=== PATIENT | male | born 1960 | race African-American/Black ===

== ENCOUNTER 2017-09-27 22:37 | Emergency (ER) | payer OTHER | END 2017-09-28 00:30 | disposition home or self-care (01) | LOC: ER 09-28 00:30 | DX: S46.911A Strain of unspecified muscle, fascia and tendon at shoulder and upper arm level, right arm, initial encounter (principal); Z88.0 Allergy status to penicillin; X58.XXXA Exposure to other specified factors, initial encounter; Y93.89 Activity, other specified; Y92.89 Other specified places as the place of occurrence of the external cause; Y99.8 Other external cause status | CPT/HCPCS: 73030; 73080; 99284 ==

== ENCOUNTER → 2018-01-01 | Outpatient (CLI) | payer OTHER ==
[2017-09-27 22:56] VITALS: BP 144/82
[~2018-01-01] MED LIST: CONTRAST GIVEN. MC PRN; IOHEXOL 240 MG/ML 50ML VIAL. PO ONE; IOHEXOL 300 MG/ML 100ML VIAL. IV ONE; IOHEXOL 300 MG/ML 100ML VIAL. ONE
--- NOTE | 2018-01-01 14:42 | RAD ---
CT pelvis with contrast dated 01/01/2018. No comparison available. CLINICAL INDICATION: Right inguinal pain and groin tenderness. Palpable mass. TECHNIQUE: Contiguous axial imaging the pelvis performed after the intravenous administration of 75 cc Omnipaque 300. One or more of the following individualized dose reduction techniques were utilized for this examination: 1. Automated exposure control 2. Adjustment of the mA and/or kV according to patient size 3. Use of iterative reconstruction technique. FINDINGS: There is a long segment of wall thickening involving the terminal ileum nearly to the level of the ileocecal valve. This is best seen on coronal image 33 and measures up to 10.5 cm in length. There is also some focal wall thickening of the adjacent sigmoid colon with possible small fistulous connection. There is also wall thickening of the appendiceal base with ill-definition of the appendiceal tip. The appendix appears to be tethered into the area of thickened mesentery adjacent to the distal ileum and sigmoid colon. There are enlarged ileocolic lymph nodes that measure up to 1.2 cm short axis. No circumscribed fluid collection to suggest abscess. No free air. Visualized GI tract is otherwise unremarkable. There is no free fluid or pelvic sidewall adenopathy. Distal aorta normal in caliber. Ureter bladder is nondistended. Prostate gland mildly enlarged. No free fluid. There are mildly enlarged bilateral inguinal lymph nodes, right greater than left. Bone windows show no acute findings. Mild lower lumbar spondylosis. IMPRESSION: 1. Thickened segment of distal ileum, nonspecific but suspicious for Crohn's disease. 2. There is also a short segment of wall thickening involving the sigmoid colon which may communicate to the thickened terminal ileum via a small fistulous tract. 3. The appendix is also abnormally thickened and appears to be tethered into the area of inflammation in the right lower quadrant,, likely also related to inflammatory bowel disease. Concurrent acute appendicitis cannot be excluded. Recommend clinical correlation. 4. Mild ileocolic and inguinal lymphadenopathy, nonspecific. Electronically signed by: Demetri Armstrong MD (01/01/2018 2:39 PM) [id number]
== END | disposition home or self-care (01) ==
LOC: CT 12:36
PROVIDERS: ATTEND Family Medicine
DX: R59.1 Generalized enlarged lymph nodes (principal); M47.896 Other spondylosis, lumbar region; Z88.0 Allergy status to penicillin
CPT/HCPCS: 74170; Q9966; Q9967

== ENCOUNTER 2019-04-05 17:46 | Emergency (ER) | payer OTHER ==
[~2019-04-05] VITALS: Ht 175.3 cm; Wt 83.9 kg
[2019-04-05 18:07] VITALS: BP 134/86
[2019-04-05] MEDS ORDERED: CEPH-264 PO (18:37)
[2019-04-05] MEDS ORDERED: MUPI22OI2 TP (18:37)
--- NOTE | 2019-04-05 18:37 | PHYS DOC ---
Past Medical History Past Medical History: No Pertinent History, Other Additional Past Medical Histor: CROHNS (AKIRA VICTOR APRN) Additional Past Surgical Histo: polyup removal, left marcial tumor removal, left knee scope x2 (AKIRA VICTOR APRN) Alcohol Use: Rarely Drug Use: None (AKIRA VICTOR APRN) Attending Signature I have participated in the care of this patient and I have reviewed and agree with all pertinent clinical information above including history, exam, and recommendations. (AHSAN MONTENEGRO MD) Adult General Chief Complaint Chief Complaint: SKIN PROBLEM HPI HPI Patient is a 58 year old AA male who presents to the ER with complaints of a red tender area to his chin for the last week. Pt states that it has drained bloody pus for the last 2-3 days. He denies any fever, cough, shortness of breath, sore throat, or ear pain. Pt states he takes naproxen twice daily for chronic pain. He currently rates the pain a 4/10 on the pain scale. All other ROS is neg unless otherwise noted in HPI. (AKIRA VICTOR APRN) Review of Systems Review of Systems See Above (AKIRA VICTOR APRN) Allergies Allergies Allergies Coded Allergies Type Severity Reaction Last Updated Verified Penicillins Allergy Intermediate 09/27/17 Yes (AHSAN MONTENEGRO MD) Physical Exam Physical Exam See Above Constitutional: Well developed, well nourished, no acute distress, non-toxic appearance. [] HENT: Normocephalic, atraumatic, bilateral external ears normal, oropharynx moist, no oral exudates, nose normal. [] Eyes: PERRLA, EOMI, conjunctiva normal, no discharge. [] Neck: Normal range of motion, no tenderness, supple, no stridor. [] Cardiovascular:Heart rate regular rhythm Lungs & Thorax: Bilateral breath sounds clear to auscultation [] Skin: Warm, dry; erythemic warm area to right lateral chin consistent with abscess/ cellulitis, no fluctuant area or pustule present. Extremities: No cyanosis, ROM intact Neurologic: Alert and oriented X 3, no focal deficits noted. [] Psychologic: Affect normal, judgement normal, mood normal. [] (AKIRA VICTOR APRN) Current Patient Data Vital Signs Vital Signs Date Time Temp Pulse Resp B/P (MAP) Pulse Ox O2 Delivery O2 Flow Rate FiO2 04/05/19 18:07 98.1 100 16 134/86 (102) 96 Room Air 98.1 (AHSAN MONTENEGRO MD) EKG EKG [] (AKIRA VICTOR APRN) Radiology/Procedures Radiology/Procedures [] (AKIRA VICTOR APRN) Course & Med Decision Making Course & Med Decision Making Pertinent Labs and Imaging studies reviewed. (See chart for details) [] (AKIRA VICTOR APRN) Dragon Disclaimer Dragon Disclaimer This electronic medical record was generated, in whole or in part, using a voice recognition dictation system. (AKIRA VICTOR APRN) Departure Departure Impression: Primary Impression: Abscess or cellulitis of chin Disposition: 01 HOME, SELF-CARE Condition: STABLE Referrals: SANTO CENTENO (PCP) Patient Instructions: Cellulitis, [id number], Facial Infection Additional Instructions: Fill the prescription(s) and use as directed. Apply warm, moist packs to the area 4x a day to help decrease discomfort. Make sure to change your razor blade with every shave until area clears up completely. Follow up with your primary care doctor or return to the ER in 48 hours to have site rechecked. Return to the ER sooner if your symptoms worsen. Scripts Mupirocin (MUPIROCIN OINTMENT) 22 Gm Oint...g. 1 WICHO TP TID for WOUND CARE for 7 Days, #1 TUBE 0 Refills Prov: AKIRA VICTOR APRN 04/05/19 Cephalexin (KEFLEX) 500 Mg Capsule 500 MG PO QID for 7 Days, #28 CAP 0 Refills Prov: AKIRA VICTOR APRN 04/05/19 AKIRA VICTOR APRN Apr 05, 2019 18:37 AHSAN MONTENEGRO MD Apr 05, 2019 19:06
== END 2019-04-05 19:11 | disposition home or self-care (01) ==
LOC: ER 17:46
DX: L03.211 Cellulitis of face (principal); L02.01 Cutaneous abscess of face; Z88.0 Allergy status to penicillin
CPT/HCPCS: 99283

== ENCOUNTER → 2019-07-23 | Outpatient (CLI) | payer OTHER ==
[~2019-07-23] MED LIST changes: +CEPH-264 PO; -CONTRAST GIVEN. MC PRN; +IOHEXOL 180 MG/ML 10 ML VIAL. ONE; -IOHEXOL 240 MG/ML 50ML VIAL. PO ONE; -IOHEXOL 300 MG/ML 100ML VIAL. IV ONE; -IOHEXOL 300 MG/ML 100ML VIAL. ONE; +MESA4ENE3 RC; +MULT-697 PO; +MUPI22OI2 TP; +OMEP20CA16 PO; +methylPREDNISolone ACETATE 40 MG/ML VIAL. ONE; +methylPREDNISolone ACETATE 80 MG/ML VIAL. ONE; +prosta genix
--- NOTE | 2019-07-23 16:52 | PAIN ---
DATE OF SERVICE: 07/23/2019 INITIAL CONSULTATION FOR PAIN CLINIC CHIEF COMPLAINT: Neck and right upper extremity pain. HISTORY OF PRESENT ILLNESS: This is a 58-year-old male who presents with history of pain in the base of the neck, right upper extremity, and right shoulder since about 01/29/2019. The patient reports it occurred suddenly. 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 The patient has had some significant pain at the base of neck and shoulder. Since then, the patient did get the shoulder reduced fairly quickly and has seen his orthopedic surgeon regarding it and he does have a rotator cuff tear on the right side, but his main complaint is pain in the base of the neck radiating to the right shoulder in the upper part of the shoulder and neck radiating to the right arm posteriorly into the triceps muscle and also anteriorly in the biceps and into the forearm, both medially and radiating into the thumb and the first and second fingers. The patient reports he has been dropping things with the right hand. The patient describes the pain as constant, shooting, sharp, tingling in the base of neck and shoulder, intermittent in intensity, but present throughout the day. The patient reports it awakens him from sleep at least 2-3 times a night, does not affect his bowel or bladder control. It is difficult with walking activities and using his right upper extremity with repetitive motions, raising his hand over the head on the right side. The patient did have an MRI scan of the cervical spine showing diffuse cervical spondylosis and more significant disease at C3-C4, C5-C6, C6-C7 and C3-C4 showing generalized disk bulging eccentric towards the left with mild left posterior joint osteophyte complexes. The patient's C4C5 with generalized disk bulge and mild posterior lateral facet change and effacement of the CSF anterior to the spinal cord. C5-C6 shows generalized disk bulging and posterior lateral uncovertebral joint osteophyte formation, right-sided neural foraminal narrowing, mild extent. C6C7 shows a broad-based left paracentral and lateral disk protrusion deformity, anterior thecal sac abutting the anterior aspect of the spinal cord. The patient rates his disability from 0-10, 10 being the worst, is a 6 with family home responsibilities, 10 with recreation, 6 with social activity, sexual behavior, self-care and life support activities and 7 with occupational activity. The patient has tried physical therapy especially with his shoulder and his neck, which was helpful at that time, but now successful in decreasing the pain long-term. He is also taking Aleve twice daily. The patient reports no loss of motor function, but significant fatigability in the right upper extremity compared to the left with repetitive motions and weightbearing. The patient reports again dropping items on the right side as well over the last few weeks. PAST MEDICAL HISTORY: Significant for: 1. Gastroesophageal reflux. 2. History of cigarette smoking, quit 3 years ago. 3. History of Crohn's disease. 4. Arthritis. 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 2. Knee scope on the left x 2. 3. Tonsillectomy in the past. CURRENT MEDICATIONS: Include Aleve. ALLERGIES: The patient is allergic to PENICILLIN. FAMILY HISTORY: Significant for different types of cancers. SOCIAL HISTORY: The patient does not drink alcohol, does not smoke. Denies any illegal, illicit or recreational drugs. 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 REVIEW OF SYSTEMS: The patient's review of systems is positive for those items mentioned in the history of present illness. All systems reviewed and otherwise negative. It is complete, full and well documented on the patient's chart. PHYSICAL EXAMINATION: VITAL SIGNS: The patient's blood pressure is 151/98, pulse is 71, respirations 16, temperature 97.7 degrees Fahrenheit, height is 5 feet 8-1/2 inches, weight is 186 pounds. GENERAL: The patient is awake, alert, oriented, appropriate, very pleasant demeanor. HEENT: Head shows normocephalic, atraumatic. Extraocular movements are intact and symmetrical. Oral cavity: Mucous membranes moist and pink. Dentition is intact. NECK: Shows anterior throat supple without palpable lymphadenopathy noted. Swallow reflex symmetrical. CHEST: Shows normal on inspection. Breath sounds are clear to auscultation bilaterally. HEART: Shows S1, S2 clear. No murmurs auscultated. ABDOMEN: Soft, nontender, nondistended. No palpable organomegaly is noted. No rebound or guarding demonstrated. BACK: Shows spine grossly in the midline. Normal appearing thoracic kyphosis, cervical lordotic curvature and lumbar lordotic curvature. Cervical paraspinous muscle shows symmetrical on inspection, with palpation shows some moderate tenderness diffusely bilaterally, but only diffusely without significant radiation. The patient has good rotational motion of the cervical spine, both laterally as well as extension and flexion greater than 45 degrees closer to 90 degrees on right and left as well as extension and forward flexion, full chin to chest and extension without difficulty or pain reported. EXTREMITIES: The patient's upper extremities show deep tendon reflexes 2+ in the biceps and triceps tendons. Motor exam is strong with it solutions architect strength rated at 5/5. Bicep and tricep flexion is 4/5 on the right and 5/5 on the left. Shoulder shrug is strong and intact with some moderate tenderness with performing the shoulder shrug on the right side only, but without loss of strength on resistance. This is true with abduction of the shoulders at 90 degrees with some moderate tenderness with resistance on the right side, but no loss of strength on resistance and pain reported at the base of neck and right shoulder on the right only. Peripheral pulses are 2+ radial. No peripheral edema noted. The upper extremities are warm and dry to touch, equal in color and appearance. SKIN: Warm and dry. Good turgor. No edema. No sores, rashes or bruising throughout. IMPRESSION: 1. This is a 58-year-old male with history of injury in January 2019 while on the job restraining a patient as the patient is a internet security specialist with radicular pain and rotator cuff tear in the right upper extremity. 2. MRI scan of the cervical spine as noted. 3. Arthritis. 4. History of Crohn's disease. PLAN: Options were discussed including continued physical therapies, interventional techniques and medication management. The patient would like to pursue interventional techniques. We discussed the cervical epidural steroid injection using description as well as anatomical models to describe the procedure. Risks were then discussed including, but not limited to bleeding, infection, possibility of epidural hematoma, subsequent neurological compromise, dural puncture, headaches, spinal cord and/or nerve damage, side effects of steroid medication and poor results regarding pain control. The patient understands and wished to proceed. The patient will return to clinic in approximately 2 weeks for followup. He was counseled as to return appointment, activity level and side effects to be aware of. DIAGNOSES: Cervical radiculopathy with cervical degenerative disk disease and cervical herniated disk. PROCEDURE: Cervical epidural steroid injection, translaminar approach C6-C7 level using [place] fluoroscopic guidance under sterile prep and drape using local anesthetic. MEDICATIONS INJECTED: A total of 120 mg Depo-Medrol plus 5 mL of preservative-free normal saline and 2 mL of contrast. CONDITION AT DISCHARGE: Stable. The patient tolerated the procedure well and had no complications. SARAY QUEZADA MD DR: TOYIN/chloe JOB#: [id number] / [id number] Roxy Ramsey MD
== END ==
LOC: PNCL 13:29
PROVIDERS: ATTEND Anesthesiology
DX: M50.123 Cervical disc disorder at C6-C7 level with radiculopathy (principal); K21.9 Gastro-esophageal reflux disease without esophagitis; K50.90 Crohn's disease, unspecified, without complications; Z87.891 Personal history of nicotine dependence; Z87.39 Personal history of other diseases of the musculoskeletal system and connective tissue; Z88.0 Allergy status to penicillin; Z98.890 Other specified postprocedural states
CPT/HCPCS: 62321; J1030; J1040; Q9965

== ENCOUNTER → 2019-08-06 | Outpatient (CLI) | payer OTHER ==
[~2019-08-06] MED LIST changes: -IOHEXOL 180 MG/ML 10 ML VIAL. ONE; -methylPREDNISolone ACETATE 40 MG/ML VIAL. ONE; -methylPREDNISolone ACETATE 80 MG/ML VIAL. ONE
--- NOTE | 2019-08-06 14:09 | PAIN ---
DATE OF SERVICE: 08/06/2019 PROGRESS NOTE FOR PAIN CLINIC DIAGNOSES: Cervical radiculopathy with cervical degenerative disk disease and cervical herniated disk. HISTORY OF PRESENT ILLNESS: The patient is a 58-year-old male who returns for followup status post cervical epidural steroid injection x 1. The patient reports about 75-80% improvement in the base of neck and right upper extremity. The patient reports he has increased his activity with greater ease and comfort, doing work activities, household activities with much greater ease, is only waking him from sleep occasionally. The patient reports doing very well, was very pleased with his progress. He has increased his activity with ease, using upper and lower extremity, weightbearing, repetitive motions, working and is quite happy with his progress thus far. The patient reports the pain is a 6 on a scale of 10 at its worst over the past week, 4 on average and 4 at its least and is 4 today. The patient reports that he occasionally sharp and shooting in the neck and shoulder on the right side as well as the upper back and stabbing sensation in the right shoulder blade, but again very infrequent. The patient reports it does radiating into the right upper extremity and shoulder, but only very infrequently at this time. The patient reports no new motor or sensory deficits, no new bowel or bladder incontinence or other complaints. PHYSICAL EXAMINATION: VITAL SIGNS: Blood pressure is 130/87, pulse 98, respirations are 18, temperature 98.7 degrees Fahrenheit, weight is 181 pounds. GENERAL: The patient is awake, alert, oriented, appropriate, very pleasant demeanor. HEENT: Shows normocephalic, atraumatic. Extraocular movements are intact and symmetrical. Oral cavity: Mucous membranes are moist and pink. Dentition is intact. NECK: Shows anterior throat supple without palpable lymphadenopathy noted. Swallow reflex symmetrical. CHEST: Shows normal on inspection. Breath sounds are clear bilaterally. HEART: Shows S1, S2 clear. ABDOMEN: Soft, nontender, nondistended. No palpable organomegaly is noted. No rebound or guarding demonstrated. BACK: Shows spine grossly in the midline. Cervical paraspinous muscle shows symmetrical on inspection, with palpation shows some mild tenderness only inferiorly in the inferior cervical paraspinous musculature as well as superior medial trapezius, more on the right than the left, but without specific trigger points. The patient just shows full rotational motion of the cervical spine without significant increase in pain, both right and left lateral greater than 45 degrees as well as full extension, full forward flexion without significant difficulty. EXTREMITIES: The patient's upper extremities show deep tendon reflexes at 2+ in the biceps and triceps tendons. Motor exam is approximately 4 on scale of 5 with right clay miner strength and 5/5 on the left. Bicep and tricep flexion are 5/5 bilaterally. Peripheral pulses are 2+ radial. No peripheral edema is noted bilaterally. Options were discussed with the patient. The patient's old chart was reviewed as his current medication regimen updated. Current review of systems updated today as well. We will hold on his further injections at this time as the patient is doing quite a bit better and would like to wait on any further procedural interventions. The patient will increase activity as tolerated and was encouraged to do stretching and strengthening exercises as well as some heat applications to the right shoulder and neck as he has been doing. The patient will follow up at this time on as needed basis. SARAY QUEZADA MD DR: TOYIN/chloe JOB#: [id number] / [id number]
== END ==
LOC: PNCL 12:58
PROVIDERS: ATTEND Anesthesiology
DX: M50.10 Cervical disc disorder with radiculopathy, unspecified cervical region (principal)
CPT/HCPCS: G0463

== ENCOUNTER → 2019-10-16 | Outpatient (CLI) | payer OTHER ==
[~2019-10-16] MED LIST changes: +IOHEXOL 180 MG/ML 10 ML VIAL. ONE; +SITA1TAB7 PO; +methylPREDNISolone ACETATE 40 MG/ML VIAL. ONE; +methylPREDNISolone ACETATE 80 MG/ML VIAL. ONE
--- NOTE | 2019-10-16 13:56 | PAIN ---
DATE OF SERVICE: 10/16/2019 PROGRESS NOTE FOR PAIN CLINIC DIAGNOSES: Cervical radiculopathy with cervical degenerative disk disease and cervical herniated disk. HISTORY OF PRESENT ILLNESS: The patient is a 58-year-old male who returns for followup status post cervical epidural steroid injection x 1 on 07/23/2019. The patient reports he did very well for a significant period of time following the injection, but the pain is returning now in the base of the neck and the right upper extremity. The patient reports no new motor or sensory deficits, but significant pain in the neck and the right upper extremity, mostly in the posterior deltoid, posterior and anterior biceps and triceps and into the forearm with numbness and tingling in the thumb and first finger, especially on the right side. The patient reports it is getting worse with activity, weight lifting, weightbearing, repetitive motions, lifting his arm over his head and is impairing some of his work activities. This is causing it to be more exacerbated as well. The patient reports it awakens him from sleep about every 6 hours. The patient reports initially he was doing much better with doing work activities, household activities, traveling with greater ease and comfort, now it is returning. The patient rates it as a 7 on a scale of 10 at its worst over the past week, 4 on average and 4 at its least and is a 4 today. The patient reports it is sharp, shooting, tingling, burning, radiating, on and off in intensity. No new motor or sensory deficits or other complaints. PHYSICAL EXAMINATION: VITAL SIGNS: The patient's blood pressure is 135/88, pulse 69, respirations are 18, temperature 98.5 degrees Fahrenheit, weight is 185 pounds. GENERAL: The patient is awake, alert, oriented, appropriate, very pleasant demeanor. HEENT: Shows normocephalic, atraumatic. Extraocular movements are intact and symmetrical. Oral cavity: Mucous membranes moist and pink. Dentition is intact. NECK: Shows anterior throat supple without palpable lymphadenopathy noted. Swallow reflex symmetrical. CHEST: Shows normal on inspection. Breath sounds are clear bilaterally. HEART: Shows S1, S2 clear. No murmurs auscultated. ABDOMEN: Soft, nontender, nondistended. No palpable organomegaly is noted. No rebound or guarding demonstrated. BACK: Shows spine grossly in the midline. Normal appearing thoracic kyphosis and lumbar lordotic curvature as well as cervical lordotic curvature. Cervical paraspinous muscle shows symmetrical on inspection, on palpation shows some moderate tenderness diffusely bilaterally, but only diffusely without significant radiation. The patient has good rotational motion of cervical spine, both laterally as well as extension and flexion without significant increase in pain. EXTREMITIES: The patient's upper extremities show deep tendon reflexes at 2+ biceps and triceps tendons. Motor exam is approximately 4 on a scale of 5 with right dermatology physician strength and 5/5 on the left. Peripheral pulses are 2+ radial. No peripheral edema is noted bilaterally. Options were discussed with the patient. The patient's old chart was reviewed as his current medication regimen updated. Current review of systems updated today as well and we will proceed with a second in a series of cervical epidural steroid injection today with fluoroscopic guidance. Risks were again discussed including, but not limited to bleeding, infection, possibility of epidural hematoma, subsequent neurological compromise, dural puncture, headaches, spinal cord and/or nerve damage, side effects of steroid medication and poor results regarding pain control. The patient understands and wished to proceed. The patient will return to clinic in approximately 2 weeks for followup, was counseled on return appointment, activity level and side effects to be aware of. DIAGNOSES: Cervical radiculopathy with cervical degenerative disk disease. PROCEDURE: Cervical epidural steroid injection, translaminar approach C6-C7 level using C-arm fluoroscopic guidance under sterile prep and drape using local anesthetic. MEDICATION INJECTED: A total of 120 mg Depo-Medrol plus 5 mL of preservative-free normal saline and 2 mL of contrast. CONDITION AT DISCHARGE: Stable. The patient tolerated the procedure well, had no complications. SARAY QUEZADA MD DR: TOYIN/chloe JOB#: [id number] / [id number]
== END ==
LOC: PNCL 11:42
PROVIDERS: ATTEND Anesthesiology
DX: M50.123 Cervical disc disorder at C6-C7 level with radiculopathy (principal)
CPT/HCPCS: 62321; J1030; J1040; Q9965

== ENCOUNTER 2020-03-19 21:52 | Emergency (ER) | payer OTHER ==
[~2020-03-19] VITALS: Ht 180.3 cm; Wt 81.8 kg
[~2020-03-19 21:52] MED LIST changes: -IOHEXOL 180 MG/ML 10 ML VIAL. ONE; -methylPREDNISolone ACETATE 40 MG/ML VIAL. ONE; -methylPREDNISolone ACETATE 80 MG/ML VIAL. ONE
[2020-03-19 21:55] VITALS: BP 172/98
--- NOTE | 2020-03-19 22:59 | RAD ---
AP pelvis radiograph to include AP and lateral radiograph the right hip 03/19/2020 CLINICAL HISTORY: Right hip pain. An AP digital radiograph of the pelvis to include both hips was obtained. AP and lateral radiographs of the right hip were obtained. No pelvic bone fracture is seen. Both hips are intact. No fracture or dislocation of the right hip is seen. Mild to moderate degenerative changes are seen involving both hips. Calcifications are seen within the pelvis consistent with phleboliths. IMPRESSION: Mild to moderate degenerative changes are seen involving both hips. No acute osseous abnormality is seen. Electronically signed by: Lacho Scott MD (03/19/2020 10:56 PM) [id number]
--- NOTE | 2020-03-19 23:02 | RAD ---
Three-view right shoulder radiographs 05/19/2019 CLINICAL HISTORY: Fall with injury to the right shoulder. AP internal and external rotation and transscapular digital radiographs of the right shoulder were obtained. No fracture or dislocation of the right shoulder is seen. Mild degenerative changes are seen involving the right AC joint and right glenohumeral joint. IMPRESSION: No fracture or dislocation of the right shoulder is seen. Electronically signed by: Lacho Scott MD (03/19/2020 10:59 PM) [id number]
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
[2020-03-19 23:25] LABS: AMPHETAMINE/METHAMPHETAMINE NEG (NEG); BARBITURATES NEG (NEG); BENZODIAZEPINES NEG (NEG); CANNABINOIDS NEG (NEG); COCAINE NEG (NEG); METHADONE NEG (NEG); OPIATES NEG (NEG); PHENCYCLIDINE NEG (NEG)
== END 2020-03-19 23:18 | disposition home or self-care (01) ==
LOC: ER 21:52
DX: S49.91XA Unspecified injury of right shoulder and upper arm, initial encounter (principal); S79.911A Unspecified injury of right hip, initial encounter; Z87.891 Personal history of nicotine dependence; Z88.0 Allergy status to penicillin; W18.39XA Other fall on same level, initial encounter; Y93.89 Activity, other specified; Y92.89 Other specified places as the place of occurrence of the external cause; Y99.8 Other external cause status
CPT/HCPCS: 73030; 73502; 80307; 99284

== ENCOUNTER → 2020-04-13 | Outpatient (CLI) | payer OTHER ==
[2020-03-19 21:55] VITALS: BP 172/98
[~2020-04-13] MED LIST changes: +CYCL10TA2 PO; +IOHEXOL 180 MG/ML 10 ML VIAL. ONE; +NAPR220C4 PO; +methylPREDNISolone ACETATE 40 MG/ML VIAL. ONE; +methylPREDNISolone ACETATE 80 MG/ML VIAL. ONE
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
== END | disposition home or self-care (01) ==
LOC: PNCL 14:11
PROVIDERS: ATTEND Anesthesiology
DX: M50.10 Cervical disc disorder with radiculopathy, unspecified cervical region (principal); M19.011 Primary osteoarthritis, right shoulder; Z79.899 Other long term (current) drug therapy; Z98.890 Other specified postprocedural states; Z88.0 Allergy status to penicillin; Z87.891 Personal history of nicotine dependence; Z72.89 Other problems related to lifestyle
CPT/HCPCS: 62321; J1030; J1040; Q9965

== ENCOUNTER → 2020-04-27 | Outpatient (CLI) | payer OTHER ==
[~2020-04-27] MED LIST changes: +BUPIVACAINE MPF 0.25% 10 ML VIAL. ONE
--- NOTE | 2020-04-27 15:46 | PDOC ---
Progress Note - Pain Clinic Date of Service: DOS: DATE: 04/27/20 TIME: 15:40 Diagnosis: Dx: Cervical radiculopathy with cervical degenerative disease and cervical herniated disc Right shoulder joint pain with osteoarthritis and previous injury History or Present Illness: HPI: 59-year-old male returns follow-up status post cervical epidural steroid injection x1 April 13, 2020. Patient reports about 50% improvement after the last injection. But his main complaint is right shoulder joint pain worse with weightbearing lifting abduction of the right shoulder repetitive motions reaching over his arm with significant pain less shocking pain after the injection but still significant pain in the shoulder itself. Patient rates is a 7 on scale 10 is worst the past week for an average to its least and is a 4 today. Patient describes the pain as aching and sharp, tingling in the shoulder and arm as well is radiating into the upper extremity mostly on the lateral side of the shoulder. Patient reports no loss of motor function or other complaints. Physical Exam: VS: Blood pressure is 131/96 pulse 88 respirations 16 temperature 98.5 F weight is 180 pounds PE: PHYSICAL EXAMINATION: GENERAL: The patient is awake, alert, oriented, appropriate, very pleasant demeanor HEENT: Shows normocephalic, atraumatic. Extraocular movements are intact and symmetrical. Oral cavity: Mucous membranes moist and pink. NECK: Shows anterior throat supple without palpable lymphadenopathy noted. Swal low reflex symmetrical. CHEST: Shows normal on inspection. Breath sounds are clear bilaterally, no rales or rhonchi. HEART: Shows S1, S2 clear. No murmurs auscultated. ABDOMEN: Soft, nontender, nondistended, obese. No palpable organomegaly is noted. No rebound or guarding demonstrated. BACK: Shows spine grossly in the midline. Normal-appearing cervical lordotic curvature. Cervical paraspinous posterior shows symmetrical with inspection on palpation some moderate tenderness diffusely bilaterally but without radiation without trigger points slightly more tender on the right than the left. Patient's spine shows good rotation motion both laterally greater than 45 degrees right and left as well as full extension full forward flexion of the cervical spine. There is slightly increased thoracic kyphosis, some minor flattening of the lumbar lordotic curvature. EXTREMITIES: Upper extremities show deep tendon reflexes 2+ in the steps and triceps tendons. Motor exam is 4 on a scale of 5 with right patrol captain, biceps and triceps flexion and 5/5 on the left. Peripheral pulses are 2+ radial. No peripheral edema is noted bilaterally. SKIN: Shows warm and dry, good turgor. No edema. No sores, rashes or bruising throughout. Procedure: Procedure: Discussed with the patient. Patient will chart reviews his current medication regimen updated current review of systems updated today as well. We will proceed with a right intra-articular shoulder joint injection with fluoroscopic guidance in the glenohumeral joint. Risks are discussed including but not limited to bleeding infection possibility of intravascular injection sequelae spread local anesthetic numbness side effects of steroid medication exposure fluoroscopy and portals regarding pain control. Patient understands wished to proceed. Patient will return to clinic in approximately 2 weeks for follow-up was counseled as to return appointment activity level, and side effects to be aware of. Medication Injected: Med Injected: Under sterile prep and drape patient's right shoulder was visualized and using direct fluoroscopic C arm guidance the glenohumeral joint was then a 5 using 1% lidocaine was topically anesthetized over the glenohumeral joint. Using a 22- gauge Quincke needle with stylette needle the joint was entered under direct visualization and fluoroscopic guidance without difficulty. Stylet was removed and 2 cc of Isovue was injected with good spread within the right shoulder joint without washout or uptake. At this time, 3 cc of 0.25% ropivacaine and 80 mg Depo-Medrol was then injected into the glenohumeral joint. Needle was withdrawn and sterile bandage was applied. Patient tolerated procedure well and had no complications. Condition at Discharge: Condition at Discharge: Condition at discharge stable, patient tolerated the procedure well and had no complications. SARAY QUEZADA MD Apr 27, 2020 15:46
== END | disposition home or self-care (01) ==
LOC: PNCL 14:38
PROVIDERS: ATTEND Anesthesiology
DX: M19.011 Primary osteoarthritis, right shoulder (principal); M50.10 Cervical disc disorder with radiculopathy, unspecified cervical region; Z79.899 Other long term (current) drug therapy; Z88.0 Allergy status to penicillin; Z87.891 Personal history of nicotine dependence; Z72.89 Other problems related to lifestyle
CPT/HCPCS: 20610; J1040; J3490; Q9965; 77002; J1030

== ENCOUNTER → 2020-09-28 | Outpatient (CLI) | payer OTHER ==
[~2020-09-28] MED LIST changes: -BUPIVACAINE MPF 0.25% 10 ML VIAL. ONE; +TAMS0.4C97 PO
--- NOTE | 2020-09-28 14:52 | PDOC ---
Progress Note - Pain Clinic Date of Service: DOS: DATE: 09/28/20 TIME: 14:47 Diagnosis: Dx: Cervical radiculopathy with cervical degenerative disease and cervical herniated disc Right shoulder joint pain with osteoarthritis History or Present Illness: HPI: 59-year-old male returns for follow-up status post right shoulder joint injection April 27, 2020 and previous cervical epidural steroid injections prior to that with very good results 50 to 80% improvement patient reports the pain is increasing now in the right arm especially with numbness and tingling in the right arm and hand has been dropping items after he dropped his phone once or twice while we were talking about this issue today. Patient reports is getting worse with time tingling numbness in the right hand tight swelling sensation in the base the neck and shoulder into the scapular region as well as into the biceps and triceps as well as the pectoral region patient reports is a 6 on scale 10 is worse with the past week for an average/and is a 4 today patient scribes radiating constant in the right arm aching sharp tight and dull in the shoulder upper shoulder girdle and chest. Patient reports no new motor or sensory deficits no new changes he is waiting for surgery for right shoulder and is scheduling this through his [employer] insurance currently. Physical Exam: VS: Blood pressure is 150/90 pulse 77 respirations 16 temperature 98.2 F weight is 190 pounds PE: PHYSICAL EXAMINATION: GENERAL: The patient is awake, alert, oriented, appropriate, very pleasant demeanor HEENT: Shows normocephalic, atraumatic. Extraocular movements are intact and symmetrical. Oral cavity: Mucous membranes moist and pink. Dentition is intact. NECK: Shows anterior throat supple without palpable lymphadenopathy noted. Swallow reflex symmetrical. CHEST: Shows normal on inspection. Breath sounds are clear bilaterally, no rales rhonchi wheezes. HEART: Shows S1, S2 clear. No murmurs auscultated. 1+ ABDOMEN: Soft, nontender, nondistended, obese. No palpable organomegaly is noted. No rebound or guarding demonstrated. BACK: Shows spine grossly in the midline. Normal-appearing cervical lordotic curvature. Cervical paraspinous muscles show symmetrical with inspection on palpation some moderate tenderness diffusely inferiorly in the cervical paraspinous muscles are more on the right than the left very firm musculature compared to the left side at the superior medial trapezius and into the superior deltoid also the supra and infrascapular regions on the right without specific trigger points without radiation. Patient is good rotation motion cervical spine both laterally as well as extension flexion without significant difficulty but with moderate pain reported with extension only. No tenderness over the spinous processes, sacrum or sacroiliac regions. EXTREMITIES: Upper extremities show deep tendon reflexes 2+ in the biceps and triceps tendons. Motor exam is 4 on a scale of 5 with right strength, biceps and triceps flexion and 5/5 on the left. Peripheral pulses are 2+ radial. No peripheral edema is noted bilaterally. Upper extremities are warm and dry to touch, equal in color and appearance. SKIN: Shows warm and dry, good turgor. No edema. No sores, rashes or bruising throughout. Procedure: Procedure: Options were discussed with the patient. Patient's old chart was reviewed his his current medication regimen updated current review of systems updated today as well. We will proceed with a first in the series cervical epidural steroid injection today with fluoroscopic guidance. Risks were discussed including but not limited to: Bleeding, infection, possibility of epidural hematoma and subsequent neurological compromise, dural puncture, headaches, spinal cord and/or nerve damage, side effects of steroid medication, and poor results regarding pain control. Patient understands and wished to proceed. Patient will return to clinic in approximately 2 weeks for follow-up, was counseled as to return appointment active level and side effects to be aware of. Medication Injected: Med Injected: Procedure cervical epidural steroid injection at the C6-7 level, using local anesthetic under sterile prep and drape using C-arm fluoroscopic guidance under local anesthesia medications injected ;120 mg Depo-Medrol +5 mL normal saline and 2 mL contrast; condition at discharge is stable patient tolerated procedure well. and had no complications Condition at Discharge: Condition at Discharge: Condition at discharge stable, patient tolerated procedure well and had no complications. SARAY QUEZADA MD September 28, 2020 14:52
--- NOTE | 2020-09-28 14:52 | PDOC4 ---
PROCEDURE Procedure She was consented for cervical epidural steroid injection. Risks were discussed including but not limited to: Bleeding, infection, possibility of epidural hematoma and subsequent neurological compromise, dural puncture, headaches, spinal cord and/or nerve damage, side effects of steroid medication, and poor results regarding pain control. Patient understands and wished to proceed. Procedure cervical epidural steroid injection at the C6-7 level, using local anesthetic under sterile prep and drape using C-arm fluoroscopic guidance under local anesthesia medications injected ;120 mg Depo-Medrol +5 mL normal saline and 2 mL contrast; condition at discharge is stable patient tolerated procedure well. and had no complications SARAY QUEZADA MD September 28, 2020 14:52
== END | disposition home or self-care (01) ==
LOC: PNCL 13:58
PROVIDERS: ATTEND Anesthesiology
DX: M50.10 Cervical disc disorder with radiculopathy, unspecified cervical region (principal); M19.011 Primary osteoarthritis, right shoulder; Z79.899 Other long term (current) drug therapy; Z87.891 Personal history of nicotine dependence; Z88.0 Allergy status to penicillin; Z72.89 Other problems related to lifestyle
CPT/HCPCS: 62321; J1030; J1040; Q9965